=== PATIENT | female | born 1945 | race Two or more races ===

== ENCOUNTER 2021-08-07 11:11 | Inpatient (IN) | payer OTHER ==
[~2021-08-07] VITALS: Ht 144.8 cm; Wt 133.0 kg
== END 2021-08-10 11:35 | disposition home or self-care (01) | DRG 379 ==
LOC: ER 11:11 → EDBD 12:51 → SURH 08-08 14:37
PROVIDERS: ADMIT Surgery; ATTEND Surgery
DX: K62.5 Hemorrhage of anus and rectum (principal); E03.8 Other specified hypothyroidism; Z20.822 Contact with and (suspected) exposure to COVID-19